=== PATIENT | female | born 1975 | race Hispanic/Latino ===

== ENCOUNTER 2021-01-11 06:32 | Observation (INO) | payer OTHER ==
[2021-01-10 12:49] LABS: BASOPHILS % (AUTO) 1.1 % (0.0-5.0); HEMATOCRIT 34.7 % (36-48); MEAN CORPUSCULAR HEMOGLOBIN 21.8 pg (27.0-33.0); MEAN CORPUSCULAR HGB CONC 28.8 g/dL (32.0-36.0); MEAN CORPUSCULAR VOLUME 75.6 fL (79-99); MONOCYTES % (AUTO) 5.4 % (3.0-13.0); NEUTROPHILS % (AUTO) 57.1 % (40.0-77.0); PLATELET COUNT (AUTO) 394 K/uL (130-400); RED BLOOD CELL COUNT(AUTO) 4.59 MIL/uL (4.00-5.50); RED CELL DISTRIBUTION WIDTH 30.1 % (11.0-15.5); WHITE BLOOD COUNT (AUTO) 8.3 K/uL (4.8-10.8)
[2021-01-10 15:30] VITALS: BP 142/88
[2021-01-11] VITALS (22 sets, daily range): BP systolic 103–164; BP diastolic 58–99
[~2021-01-11] VITALS: Ht 162.6 cm; Wt 107.0 kg
[~2021-01-11 06:32] MED LIST: FERR-72 PO; LISI10TA24 PO
[2021-01-11] MEDS ORDERED: LACTATED RINGERS 1000ML 1,000 ML IV ONE (07:55)
[2021-01-11] MEDS: CEFAZOLIN SODIUM 1 GM VIAL ONE ×2 (08:03→10:45)
[2021-01-11] MEDS ORDERED: MIDAZOLAM HCL 1 MG/ML 2ML VIAL ONE (10:26)
[2021-01-11] MEDS ORDERED: FENTANYL CITRATE PF 50 MCG/1 ML 2ML VIAL ONE (10:26)
[2021-01-11] MEDS ORDERED: LIDOCAINE HCL MPF 1% 5ML VIAL ONE (10:26)
[2021-01-11] MEDS ORDERED: PROPOFOL 10 MG/ML 20ML VIAL IV ONE (10:26)
[2021-01-11] MEDS ORDERED: ROCURONIUM 10MG/1ML SYR 10 MG/ML ML ONE (10:26)
[2021-01-11] MEDS ORDERED: SUCCINYLCHOLINE 200MG/10ML SYR ONE (10:26)
[2021-01-11] MEDS ORDERED: GLYCOPYRROLATE 1 MG/5 ML SYRINGE ONE (12:08)
[2021-01-11] MEDS ORDERED: MEPERIDINE-PF 25 MG/ML SYG ONE ×2 (12:31→12:39)
[2021-01-11] MEDS ORDERED: BISACODYL 10 MG SUPP.RECT RC PRN (13:00)
[2021-01-11] MEDS ORDERED: DOCUSATE SODIUM 100 MG CAP PO PRN (13:00)
[2021-01-11] MEDS ORDERED: PROMETHAZINE HCL 25 MG/ML 1ML AMPULE IM PRN ×2 (13:00)
[2021-01-11] MEDS ORDERED: MEPERIDINE-PF 75 MG/ML SYG IM PRN (13:00)
[2021-01-11] MEDS ORDERED: ONDANSETRON 4MG INJ IVP PRN (13:00)
[2021-01-11] MEDS ORDERED: IBUPROFEN 600 MG TABLET PO PRN (13:00)
[2021-01-11] MEDS ORDERED: SIMETHICONE 80 MG TAB.CHEW PO PRN (13:00)
[2021-01-11] MEDS ORDERED: ACETAMINOPHEN WITH CODEINE 1 TAB TAB PO PRN (13:00)
[2021-01-11] MEDS: DEXTROSE 5 %-0.45 % NACL 1,000 ML IV PRN ×2 (13:23→22:02)
[2021-01-12 03:20] VITALS: BP 120/70
[2021-01-12 05:17] LABS: HEMATOCRIT 32.7 % (36-48); MEAN CORPUSCULAR HGB CONC 29.4 g/dL (32.0-36.0); MEAN CORPUSCULAR VOLUME 74.8 fL (79-99); RED BLOOD CELL COUNT(AUTO) 4.37 MIL/uL (4.00-5.50); WHITE BLOOD COUNT (AUTO) 15.9 K/uL (4.8-10.8)
[2021-01-12] MEDS: DEXTROSE 5 %-0.45 % NACL 1,000 ML IV PRN (06:45)
[2021-01-12 07:08] VITALS: BP 134/73
[2021-01-12 10:52] VITALS: BP 108/63
== END 2021-01-12 12:40 | disposition home or self-care (01) ==
LOC: DAH 06:32 → WSH 06:33 → DAH 06:33 → WSH 13:30
PROVIDERS: ADMIT Obstetrics & Gynecology; ATTEND Obstetrics & Gynecology
DX: N92.1 Excessive and frequent menstruation with irregular cycle (principal); Z20.822 Contact with and (suspected) exposure to COVID-19; D50.9 Iron deficiency anemia, unspecified; D25.9 Leiomyoma of uterus, unspecified; N94.6 Dysmenorrhea, unspecified; N81.4 Uterovaginal prolapse, unspecified; K46.9 Unspecified abdominal hernia without obstruction or gangrene; I10 Essential (primary) hypertension; Z79.899 Other long term (current) drug therapy
CPT/HCPCS: 36415 ×2; 58292; 84703; 85025; 85027; 86850; 86900; 86901; 87635; 88307; 96372; A4215; A4221; A4222; A4223; A4351; A4606; A4663; A4930; A6260; C9803; G0378 ×23; J0330; J0690; J2175 ×3; J2250; J2550; J2704; J3010; J3490 ×2; J7120 ×2